=== PATIENT | male | born 1965 | race African-American/Black ===

== ENCOUNTER 2017-02-21 11:16 | Inpatient (IN) | payer OTHER ==
[2017-02-21 11:26] VITALS: BMI 47.0
--- NOTE | 2017-02-21 13:16 | HP ---
CIWA Score - CIWA Score Nausea/Vomitin-No Nausea/No Vomiting Muscle Tremors: 4-Moderate,w/Arms Extend Anxiety: 3 Agitation: 4-Moderately Restless Paroxysmal Sweats: 3 Orientation: 0-Oriented Tacttile Disturbances: 0-None Auditory Disturbances: 0-None Visual Disturbances: 0-None Headache: 0-None Present CIWA-Ar Total Score: 14 Admission ROS BHS - HPI Chief Complaint: I need to detox from alcohol and cocaine. Allergies/Adverse Reactions: Allergies Allergy/AdvReac Type Severity Reaction Status Date / Time No Known Allergies Allergy Verified 02/21/17 12:48 History of Present Illness: pt is a 51yr old male with a history of alcohol dependence seeking detox for treatment. Exam Limitations: Physical Impairment (d/t to leg pain pt uses cane and walker) - Ebola screening Have you traveled outside of the country in the last 21 days: No Have you had contact with anyone from an Ebola affected area: No Have you been sick,other than usual withdrawal symptoms: No Do you have a fever: No - Review of Systems Constitutional: No Symptoms Reported EENT: reports: No Symptoms Reported Respiratory: reports: No Symptoms reported Cardiac: reports: No Symptoms Reported GI: reports: Poor Fluid Intake : reports: No Symptoms Reported Musculoskeletal: reports: Joint Pain, Joint Stiffness Integumentary: reports: Flushing, Sweating Neuro: reports: Tingling, Tremors Endocrine: reports: Excessive Sweating, Flushing, Intolerance to Cold, Intolerance to Heat Hematology: reports: No Symptoms Reported Psychiatric: reports: Judgement Intact, Mood/Affect Appropiate, Orientated x3, Agitated, Anxious Other Systems: Reviewed and Negative Patient History - Patient Medical History Hx Anemia: No Hx Asthma: No Hx Chronic Obstructive Pulmonary Disease (COPD): No Hx Cancer: No Hx Cardiac Disorders: No Hx Congestive Heart Failure: No Hx Hypertension: Yes Hx Hypercholesterolemia: No Hx Pacemaker: No HX Cerebrovascular Accident: No Hx Seizures: No Hx Diabetes: No Hx Gastrointestinal Disorders: No Hx Liver Disease: No Hx Genitourinary Disorders: No Hx Sexually Transmitted Disorders: No Hx Renal Disease (ESRD): No Hx Thyroid Disease: No Hx Human Immunodeficiency Virus (HIV): No (negative) Hx Hepatitis C: No (negative) Hx Depression: Yes Hx Suicide Attempt: No (denies) Hx Bipolar Disorder: No Hx Schizophrenia: No - Patient Surgical History Past Surgical History: Yes Hx Neurologic Surgery: No Hx Cataract Extraction: No Hx Cardiac Surgery: No Hx Lung Surgery: No Hx Breast Surgery: No Hx Breast Biopsy: No Hx Abdominal Surgery: No Hx Appendectomy: No Hx Cholecystectomy: No Hx Genitourinary Surgery: No Hx Section: No Hx Orthopedic Surgery: Yes (left femur x3 (fall)) Anesthesia Reaction: No - PPD History Previous Implant?: Yes Documented Results: Negative w/o proof Implanted On Prior [facility] Admission?: No PPD to be Administered?: Yes - Reproductive History Patient is a Female of Child Bearing Age (11 -55 yrs old): No - Smoking Cessation Smoking history: Current every day smoker Have you smoked in the past 12 months: Yes Aproximately how many cigarettes per day: 8 Hx Chewing Tobacco Use: No Initiated information on smoking cessation: Yes 'Breaking Loose' booklet given: 02/21/17 - Substance & Tx. History Hx Alcohol Use: Yes Hx Substance Use: Yes Substance Use Type: Alcohol, Cocaine, Heroin Hx Substance Use Treatment: Yes (last detox 2 months ago [facility]) - Substances Abused Heroin Route: Inhalation Frequency: 1-2 times per week Amount used: 1-2 bags Age of first use: 39 Date of Last Use: 03/18/17 Crack Route: Smoking Frequency: 3-6 times per week Amount used: $60 Age of first use: 21 Date of Last Use: 03/19/17 Alcohol-vodka/beer Route: Oral Frequency: Daily Amount used: fifth/1-6 pk. Age of first use: 11 Date of Last Use: 02/21/17 Family Disease History - Family Disease History Family History: Denies Admission Physical Exam [facility] - Vital Signs Vital Signs: Vital Signs - 24 hr 02/21/17 11:23 Temperature 96.7 F L Pulse Rate 75 Respiratory 20 Rate Blood Pressure 136/86 - Physical General Appearance: Yes: Moderate Distress, Obese, Tremorous, Irritable, Sweating, Anxious HEENTM: Yes: Within Normal Limits Respiratory: Yes: Lungs Clear, Normal Breath Sounds, No Respiratory Distress Neck: Yes: No masses,lesions,Nodules Breast: Yes: Within Normal Limits Cardiology: Yes: Regular Rhythm, Regular Rate, S1, S2 Abdominal: Yes: Normal Bowel Sounds, Non Tender, Soft Genitourinary: Yes: Within Normal Limits Back: Yes: Normal Inspection Musculoskeletal: Yes: Joint Stiffness, Muscle Pain Extremities: Yes: Normal Capillary Refill, Normal Inspection, Non-Tender, Tremors Neurological: Yes: Fully Oriented, Alert, Normal Response Integumentary: Yes: Normal Color Lymphatic: Yes: Within Normal Limits - Diagnostic (1) Alcohol dependence with uncomplicated withdrawal Current Visit: Yes Status: Chronic (2) Hypertension Current Visit: Yes Status: Chronic Qualifiers: Hypertension type: essential hypertension Qualified Code(s): I10 - Essential (primary) hypertension; I10 - Essential (primary) hypertension; I10 - Essential (primary) hypertension (3) Cocaine dependence Current Visit: Yes Status: Chronic Qualifiers: Substance use status: uncomplicated Qualified Code(s): F14.20 - Cocaine dependence, uncomplicated; F14.20 - Cocaine dependence, uncomplicated; F14.20 - Cocaine dependence, uncomplicated (4) Nicotine dependence Current Visit: Yes Status: Chronic Qualifiers: Nicotine product type: cigarettes Substance use status: uncomplicated Qualified Code(s): F17.210 - Nicotine dependence, cigarettes, uncomplicated; F17.210 - Nicotine dependence, cigarettes, uncomplicated Cleared for Admission [facility] - Detox or Rehab [facility] Level of Care: Medically Managed Detox Regimen/Protocol: Librium [facility] Breath Alcohol Content Breath Alcohol Content: 0.077 Urine Drug Screen - Results Drug Screen Negative: No Urine Drug Screen Results: [facility]OUIS-Cocaine
[2017-02-21] MEDS ORDERED: guaiFENesin/D-METHORPHAN HB 10 ML UNIT-DOSE CUPS PO PRN (13:17)
[2017-02-21] MEDS ORDERED: LOPERAMIDE HCL 2 MG CAPSULE PO PRN (13:17)
[2017-02-21] MEDS ORDERED: MAGNESIUM CITRATE 300 ML BOTTLE PO PRN (13:17)
[2017-02-21] MEDS ORDERED: NICOTINE POLACRILEX 2 MG GUM BUC PRN (13:17)
[2017-02-21] MEDS ORDERED: IBUPROFEN 400 MG TABLET (FP) PO PRN (13:17)
[2017-02-21] MEDS ORDERED: hydrOXYzine PAMOATE 50 MG CAPSULE (FP) PO PRN (13:17)
[2017-02-21] MEDS ORDERED: MENTHOL/PHENOL 1 EACH UD MM PRN (13:17)
[2017-02-21] MEDS ORDERED: chlordiazePOXIDE HCL 25 MG CAPSULE PO PRN (13:17)
[2017-02-21] MEDS ORDERED: diphenhydrAMINE HCL 50 MG CAPSULE PO PRN (13:17)
[2017-02-21] MEDS ORDERED: MAG HYDROX/AL HYDROX/SIMETH 30 ML UNIT-DOSE CUP PO PRN (13:17)
[2017-02-21] MEDS ORDERED: MAGNESIUM HYDROX 2400MG/30ML ORAL SUSPENSION 30 ML CUP PO PRN (13:17)
[2017-02-21] MEDS ORDERED: ACETAMINOPHEN 325 MG TABLET (FP) PO PRN (13:17)
[2017-02-21] MEDS ORDERED: P-EPHED 60MG/TRIPROLIDI 2.5MG TABLET PO PRN (13:17)
[2017-02-21] MEDS ORDERED: chlordiazePOXIDE HCL 25 MG CAPSULE PO ONE (15:03)
[2017-02-21] MEDS: chlordiazePOXIDE HCL 25 MG CAPSULE PO SCH ×2 (16:52→22:32)
[2017-02-21 16:53] LABS: MCH 32.6 pg (25.7-33.7); MCHC 34.7 g/dl (32.0-35.9); MEAN CELL VOLUME 93.8 fl (80-96); MEAN PLT VOLUME 10.1 fl (7.5-11.1); PLATELET COUNT 211 K/MM3 (134-434); RDW 13.3 % (11.9-15.9)
[2017-02-21 17:14] LABS: ALBUMIN 3.8 g/dl (3.4-5.0); ALK PHOS 95 U/L (45-117); ANION GAP 6 (8-16); BILIRUBIN,TOTAL 0.7 mg/dL (0.2-1.0); CO2 25 mmol/L (21-32); CREATININE 1.1 mg/dL (0.7-1.3); GLUCOSE,RANDOM 74 mg/dL (74-106); SGOT/AST 30 U/L (15-37); SGPT/ALT 33 U/L (12-78)
[2017-02-21] MEDS: GABAPENTIN 300 MG CAPSULE (FP) PO SCH (22:14)
[2017-02-21] MEDS: THIAMINE HCL 100 MG TABLET (FP) PO SCH (22:14)
[2017-02-21 23:09] LABS: URINE APPEARANCE CLEAR; URINE BILIRUBIN NEGATIVE (NEGATIVE); URINE BLOOD NEGATIVE (NEGATIVE); URINE COLOR STRAW; URINE GLUCOSE (UA) NEGATIVE (NEGATIVE); URINE KETONE NEGATIVE (NEGATIVE); URINE LEUK ESTERASE NEGATIVE (NEGATIVE); URINE NITRITE NEGATIVE (NEGATIVE); URINE PROTEIN NEGATIVE (NEGATIVE); URINE UROBILINOGEN NEGATIVE mg/dL (0.2-1.0)
[2017-02-22 00:33] LABS: HIV 1 & 2 AB NEGATIVE; HIV 1 AGp24 NEGATIVE
[2017-02-22] MEDS: chlordiazePOXIDE HCL 25 MG CAPSULE PO SCH ×4 (05:55→22:15)
[2017-02-22] MEDS: GABAPENTIN 300 MG CAPSULE (FP) PO SCH ×3 (05:57→22:15)
[2017-02-22] MEDS: IBUPROFEN 400 MG TABLET (FP) PO PRN ×2 (08:49→17:20)
[2017-02-22] MEDS: PRENATAL VITAMINS W/ FOLIC ACID TABLET (FP) PO SCH (10:04)
[2017-02-22] MEDS: NICOTINE 14 MG/24 HOURS TOPICAL PATCH TD SCH (10:48)
--- NOTE | 2017-02-22 11:30 | CONSULT ---
[facility] Psychiatric Consult - Data Date of interview: 02/22/17 Admission source: Self-referred Identifying data: Mr vargas is a 51 years old single Black, father of a 32 years old daughter, unemployed on SSD, domiciled Substance Abuse History: Reports history of alcohol, heroin and cocaine use. He started drinking alcohol at age 11, smoking crack cocaine at age 21 and heroin at 39, consumes a fifth of vodka and a 6pk of beer daily, 1-2 bags of heroin 1- 2 times weekly and $60 worth of crack cocaine 3-6 times weekly Medical History: Significant for hypertension, arthritis right hip and history of orthosurgery for fracture left femur due to a fall. Smokes 8 cigarettes daily Psychiatric History: Denies history of previous psychiatric treatment Physical/Sexual Abuse/Trauma History: Denies history of verbal, physical or sexual abuse as well as DV relationship Additional Comment: Reports history of multiple previous midemeanor arrests. No probation currently Mental Status Exam - Mental Status Exam Alert and Oriented to: Time, Place, Person Cognitive Function: Fair Patient Appearance: Well Groomed Mood: Depressed Affect: Appropriate Patient Behavior: Cooperative Speech Pattern: Clear Voice Loudness: Normal Thought Process: Intact, Goal Oriented Hallucinations: Denies Suicidal Ideation: Denies Homicidal Ideation: Denies Insight/Judgement: Poor Sleep: Poorly Appetite: Good Muscle strength/Tone: Normal Gait/Station: Other (walks with a walker because of pain from arthitis and previous surgery) Psychiatric Findings - Problem List (Cornish 1, 2,3) (1) Substance induced mood disorder Current Visit: Yes Status: Acute (2) Substance-induced sleep disorder Current Visit: Yes Status: Acute (3) Opioid dependence with withdrawal Current Visit: Yes Status: Acute (4) Alcohol dependence with uncomplicated withdrawal Current Visit: Yes Status: Acute (5) Nicotine dependence Current Visit: Yes Status: Acute (6) Arthritis of right hip Current Visit: Yes Status: Acute - Initial Treatment Plan Initial Treatment Plan: 1) Start Ambien 10 mg po HS prn for insomnia. Benefits vs Risks of medication discussed with patient and he agreed to try it. 2) continue inpatient detoxification
--- NOTE | 2017-02-22 12:28 | PN ---
[facility] CIWA - CIWA Score Nausea/Vomitin-No Nausea/No Vomiting Muscle Tremors: 4-Moderate,w/Arms Extend Anxiety: 4-Mod. Anxious/Guarded Agitation: 4-Moderately Restless Paroxysmal Sweats: 1-Minimal Palms Moist Orientation: 0-Oriented Tacttile Disturbances: 3-Moderate Itch/Numb/Burn Auditory Disturbances: 0-None Visual Disturbances: 0-None Headache: 0-None Present CIWA-Ar Total Score: 16 S Progress Note (SOAP) Subjective: ANXIETY,SWEATS,TREMORS,HIP AND LEG PAIN DUE TO CHRONIC ARTHRITIS.. USES WALKER FOR AMBULATION. URINE TOX WAS NEGATIVE FOR OPIATES ON ADMISSION. Objective: 02/22/17 12:26 Vital Signs Temperature 97.0 F L 02/22/17 09:23 Pulse Rate 81 02/22/17 09:23 Respiratory Rate 18 02/22/17 09:23 Blood Pressure 117/76 02/22/17 09:23 O2 Sat by Pulse Oximetry (%) Laboratory Last Values WBC 7.0 K/mm3 (4.0-10.0) 02/21/17 14:00 RBC 4.60 M/mm3 (4.00-5.60) 02/21/17 14:00 Hgb 15.0 GM/dL (11.7-16.9) 02/21/17 14:00 Hct 43.1 % (35.4-49) 02/21/17 14:00 MCV 93.8 fl (80-96) 02/21/17 14:00 MCH 32.6 pg (25.7-33.7) 02/21/17 14:00 MCHC 34.7 g/dl (32.0-35.9) 02/21/17 14:00 RDW 13.3 % (11.9-15.9) 02/21/17 14:00 Plt Count 211 K/MM3 (134-434) 02/21/17 14:00 MPV 10.1 fl (7.5-11.1) 02/21/17 14:00 Sodium 136 mmol/L (136-145) 02/21/17 14:00 Potassium 4.2 mmol/L (3.5-5.1) 02/21/17 14:00 Chloride 105 mmol/L (98-107) 02/21/17 14:00 Carbon Dioxide 25 mmol/L (21-32) 02/21/17 14:00 Anion Gap 6 (8-16) L 02/21/17 14:00 BUN 12 mg/dL (7-18) 02/21/17 14:00 Creatinine 1.1 mg/dL (0.7-1.3) 02/21/17 14:00 Creat Clearance w eGFR > 60 (>60) 02/21/17 14:00 Random Glucose 74 mg/dL (74-106) 02/21/17 14:00 Calcium 9.0 mg/dL (8.5-10.1) 02/21/17 14:00 Total Bilirubin 0.7 mg/dL (0.2-1.0) 02/21/17 14:00 AST 30 U/L (15-37) 02/21/17 14:00 ALT 33 U/L (12-78) 02/21/17 14:00 Alkaline Phosphatase 95 U/L (45-117) 02/21/17 14:00 Total Protein 8.0 g/dl (6.4-8.2) 02/21/17 14:00 Albumin 3.8 g/dl (3.4-5.0) 02/21/17 14:00 Urine Color Straw 02/21/17 21:34 Urine Appearance Clear 02/21/17 21:34 Urine pH 5.0 (5.0-8.0) 02/21/17 21:34 Ur Specific Bruce <= 1.005 (1.005-1.025) 02/21/17 21:34 Urine Protein Negative (NEGATIVE) 02/21/17 21:34 Urine Glucose (UA) Negative (NEGATIVE) 02/21/17 21:34 Urine Ketones Negative (NEGATIVE) 02/21/17 21:34 Urine Blood Negative (NEGATIVE) 02/21/17 21:34 Urine Nitrite Negative (NEGATIVE) 02/21/17 21:34 Urine Bilirubin Negative (NEGATIVE) 02/21/17 21:34 Urine Urobilinogen Negative mg/dL (0.2-1.0) 02/21/17 21:34 RPR Titer Nonreactive (NONREACTIVE) 02/21/17 14:00 HIV 1&2 Antibody Screen Negative 02/21/17 13:00 HIV P24 Antigen Negative 02/21/17 13:00 Assessment: 02/22/17 12:26 WITHDRAWAL SX Plan: CONTINUE DETOX
[2017-02-22] MEDS: THIAMINE HCL 100 MG TABLET (FP) PO SCH (22:15)
[2017-02-22] MEDS: ZOLPIDEM TARTRATE 10 MG TABLET (PARK CARE ONLY) PO PRN (22:15)
[2017-02-23] MEDS: chlordiazePOXIDE HCL 25 MG CAPSULE PO SCH (05:24)
[2017-02-23] MEDS: GABAPENTIN 300 MG CAPSULE (FP) PO SCH ×3 (05:24→22:45)
[2017-02-23] MEDS: NICOTINE 14 MG/24 HOURS TOPICAL PATCH TD SCH (10:09)
[2017-02-23] MEDS: chlordiazePOXIDE 5 MG CAPSULE PO SCH ×2 (10:09→17:17)
[2017-02-23] MEDS: PRENATAL VITAMINS W/ FOLIC ACID TABLET (FP) PO SCH (10:09)
[2017-02-23] MEDS: IBUPROFEN 400 MG TABLET (FP) PO PRN ×2 (10:11→19:09)
--- NOTE | 2017-02-23 11:37 | PN ---
[facility] CIWA - CIWA Score Nausea/Vomitin-No Nausea/No Vomiting Muscle Tremors: 4-Moderate,w/Arms Extend Anxiety: 4-Mod. Anxious/Guarded Agitation: 4-Moderately Restless Paroxysmal Sweats: 1-Minimal Palms Moist Orientation: 0-Oriented Tacttile Disturbances: 3-Moderate Itch/Numb/Burn Auditory Disturbances: 0-None Visual Disturbances: 0-None Headache: 0-None Present CIWA-Ar Total Score: 16 BHS Progress Note (SOAP) Subjective: SLIGHT ANXIETY, SWEATS. Objective: 02/23/17 11:36 Vital Signs Temperature 98.0 F 02/23/17 09:03 Pulse Rate 87 02/23/17 09:03 Respiratory Rate 18 02/23/17 09:03 Blood Pressure 135/93 02/23/17 09:03 O2 Sat by Pulse Oximetry (%) Laboratory Last Values WBC 7.0 K/mm3 (4.0-10.0) 02/21/17 14:00 RBC 4.60 M/mm3 (4.00-5.60) 02/21/17 14:00 Hgb 15.0 GM/dL (11.7-16.9) 02/21/17 14:00 Hct 43.1 % (35.4-49) 02/21/17 14:00 MCV 93.8 fl (80-96) 02/21/17 14:00 MCH 32.6 pg (25.7-33.7) 02/21/17 14:00 MCHC 34.7 g/dl (32.0-35.9) 02/21/17 14:00 RDW 13.3 % (11.9-15.9) 02/21/17 14:00 Plt Count 211 K/MM3 (134-434) 02/21/17 14:00 MPV 10.1 fl (7.5-11.1) 02/21/17 14:00 Sodium 136 mmol/L (136-145) 02/21/17 14:00 Potassium 4.2 mmol/L (3.5-5.1) 02/21/17 14:00 Chloride 105 mmol/L (98-107) 02/21/17 14:00 Carbon Dioxide 25 mmol/L (21-32) 02/21/17 14:00 Anion Gap 6 (8-16) L 02/21/17 14:00 BUN 12 mg/dL (7-18) 02/21/17 14:00 Creatinine 1.1 mg/dL (0.7-1.3) 02/21/17 14:00 Creat Clearance w eGFR > 60 (>60) 02/21/17 14:00 Random Glucose 74 mg/dL (74-106) 02/21/17 14:00 Calcium 9.0 mg/dL (8.5-10.1) 02/21/17 14:00 Total Bilirubin 0.7 mg/dL (0.2-1.0) 02/21/17 14:00 AST 30 U/L (15-37) 02/21/17 14:00 ALT 33 U/L (12-78) 02/21/17 14:00 Alkaline Phosphatase 95 U/L (45-117) 02/21/17 14:00 Total Protein 8.0 g/dl (6.4-8.2) 02/21/17 14:00 Albumin 3.8 g/dl (3.4-5.0) 02/21/17 14:00 Urine Color Straw 02/21/17 21:34 Urine Appearance Clear 02/21/17 21:34 Urine pH 5.0 (5.0-8.0) 02/21/17 21:34 Ur Specific Griffin <= 1.005 (1.005-1.025) 02/21/17 21:34 Urine Protein Negative (NEGATIVE) 02/21/17 21:34 Urine Glucose (UA) Negative (NEGATIVE) 02/21/17 21:34 Urine Ketones Negative (NEGATIVE) 02/21/17 21:34 Urine Blood Negative (NEGATIVE) 02/21/17 21:34 Urine Nitrite Negative (NEGATIVE) 02/21/17 21:34 Urine Bilirubin Negative (NEGATIVE) 02/21/17 21:34 Urine Urobilinogen Negative mg/dL (0.2-1.0) 02/21/17 21:34 RPR Titer Nonreactive (NONREACTIVE) 02/21/17 14:00 HIV 1&2 Antibody Screen Negative 02/21/17 13:00 HIV P24 Antigen Negative 02/21/17 13:00 Assessment: 02/23/17 11:37 WITHDRAWAL SX Plan: CONTINUE DETOX
--- NOTE | 2017-02-23 14:25 | EKG ---
Test Reason : Blood Pressure : / mmHG Vent. Rate : 079 BPM Atrial Rate : 079 BPM P-R Int : 164 ms QRS Dur : 090 ms QT Int : 368 ms P-R-T Axes : 052 033 042 degrees QTc Int : 421 ms NORMAL SINUS RHYTHM MODERATE VOLTAGE CRITERIA FOR LVH, MAY BE NORMAL VARIANT CANNOT RULE OUT SEPTAL INFARCT , AGE UNDETERMINED ABNORMAL ECG NO PREVIOUS ECGS AVAILABLE Confirmed by APARNA TOSCANO, MACKENZIE ([id number]) on 02/23/2017 2:24:57 PM Referred By: Van Deng Confirmed By:MACKENZIE BRAUN MD
[2017-02-23] MEDS ORDERED: chlordiazePOXIDE 5 MG CAPSULE PO SCH (17:00)
[2017-02-23 22:12] VITALS: BP 114/74; PULSE 93; TEMP 96.4
[2017-02-23] MEDS: THIAMINE HCL 100 MG TABLET (FP) PO SCH (22:45)
[2017-02-23] MEDS: chlordiazePOXIDE HCL 10 MG CAPSULE PO SCH (22:45)
[2017-02-23] MEDS: ZOLPIDEM TARTRATE 10 MG TABLET (PARK CARE ONLY) PO PRN (22:45)
[2017-02-24] MEDS: IBUPROFEN 400 MG TABLET (FP) PO PRN (03:21)
[2017-02-24] MEDS: GABAPENTIN 300 MG CAPSULE (FP) PO SCH (05:23)
[2017-02-24] MEDS: chlordiazePOXIDE HCL 10 MG CAPSULE PO SCH (05:23)
--- NOTE | 2017-02-24 09:20 | DS ---
[facility] Detox Discharge Summary Admission Date: 02/21/17 Discharge Date: 02/24/17 - History Present History: Alcohol Dependence, Cocaine Dependence Additional Comments: DETOX COMPLETED. D/C'D EARLY TODAY. PT REMINDED TO FOLLOW UP WITH HIS MEDICAL MANAGEMENT AT [facility] NEEDED. Pertinent Past History: HTN ARTHRITIS RIGHT HIP WALKER AMBULATORY AID. - Physical Exam Results Vital Signs: Vital Signs Temperature 96.4 F L 02/23/17 22:11 Pulse Rate 93 H 02/23/17 22:11 Respiratory Rate 18 02/24/17 03:38 Blood Pressure 114/74 02/23/17 22:11 O2 Sat by Pulse Oximetry (%) Pertinent Admission Physical Exam Findings: WITHDRAWAL SX - Treatment Hospital Course: Detox Protocol Followed, Detoxed Safely, Responded well, Discharged Condition Good - Medication Discharge Medications: Ambulatory Orders Gabapentin [Neurontin -] 300 mg PO Q8H 02/21/17 Ibuprofen 800 mg PO TID 02/21/17 Valsartan [Diovan] 80 mg PO DAILY 02/21/17 - Diagnosis (1) Alcohol dependence with uncomplicated withdrawal Status: Acute (2) Arthritis of right hip Status: Chronic (3) HTN (hypertension) Status: Chronic Qualifiers: Hypertension type: essential hypertension Qualified Code(s): I10 - Essential (primary) hypertension; I10 - Essential (primary) hypertension; I10 - Essential (primary) hypertension (4) Nicotine dependence Status: Acute Qualifiers: Nicotine product type: cigarettes Substance use status: in withdrawal Qualified Code(s): F17.213 - Nicotine dependence, cigarettes, with withdrawal; F17.213 - Nicotine dependence, cigarettes, with withdrawal (5) Walker as ambulation aid Status: Chronic (6) Cocaine dependence Status: Acute Qualifiers: Substance use status: uncomplicated Qualified Code(s): F14.20 - Cocaine dependence, uncomplicated; F14.20 - Cocaine dependence, uncomplicated; F14.20 - Cocaine dependence, uncomplicated - AMA Did Patient Leave Against Medical Advice: No
[2017-02-24] MEDS ORDERED: chlordiazePOXIDE HCL 10 MG CAPSULE PO SCH (17:00)
== END 2017-02-24 05:25 | disposition home or self-care (01) | DRG 774 ==
LOC: YASAS 11:16 → Y3N 14:58
PROVIDERS: ADMIT Internal Medicine; ATTEND Internal Medicine
PROC: HZ2ZZZZ Detoxification Services for Substance Abuse Treatment (ICD-10-PCS; principal; 2017-02-21)
DX: F10.230 Alcohol dependence with withdrawal, uncomplicated (principal); F14.20 Cocaine dependence, uncomplicated; F19.24 Other psychoactive substance dependence with psychoactive substance-induced mood disorder; F19.282 Other psychoactive substance dependence with psychoactive substance-induced sleep disorder; I10 Essential (primary) hypertension; M13.851 Other specified arthritis, right hip; E66.9 Obesity, unspecified; Z68.42 Body mass index [BMI] 45.0-49.9, adult; R26.2 Difficulty in walking, not elsewhere classified; Z99.89 Dependence on other enabling machines and devices
CPT/HCPCS: 36415; 80053; 81003; 85027; 86593; 87389; 93005; 93010

== ENCOUNTER 2017-05-07 08:40 | Inpatient (IN) | payer OTHER ==
[2017-05-07 10:51] VITALS: BMI 47.1
--- NOTE | 2017-05-07 12:02 | HP ---
CIWA Score - CIWA Score Nausea/Vomitin Muscle Tremors: 3 Anxiety: 3 Agitation: 3 Paroxysmal Sweats: 2 Orientation: 0-Oriented Tacttile Disturbances: 2-Mild Itch/Numbness/Burn Auditory Disturbances: 2-Mild Harshness/Frighten Visual Disturbances: 2-Mild Sensitivity Headache: 2-Mild CIWA-Ar Total Score: 22 Admission ROS BHS - HPI Chief Complaint: I NEED HELP TO STOP DRINKING ALCOHOL AND COCAINE,TAKING OXYCODONE Allergies/Adverse Reactions: Allergies Allergy/AdvReac Type Severity Reaction Status Date / Time No Known Allergies Allergy Verified 05/07/17 11:22 History of Present Illness: THIS 52 YEARS OLD MALE WITH ALCOHOL AND COCAINE DEPENDENCE,SEEKING DETOX,LAST DETOX [facility] LAST DETOX [facility] 02/21/17 TO 10/25/16 MULTIPLE ADMISSIONS IN DETOX MULTIPLE SURGERY LEFT HIP POST FALL AND RIGHT HIP REPLACEMENT AMBULATE WITH WALKER DEPRESSION LONGEST PERIOD OF SOBRIETY 3 YEARS Exam Limitations: No Limitations - Ebola screening Have you traveled outside of the country in the last 21 days: No Have you had contact with anyone from an Ebola affected area: No Have you been sick,other than usual withdrawal symptoms: No Do you have a fever: No - Review of Systems Constitutional: Loss of Appetite, Night Sweats EENT: reports: Nose Congestion Respiratory: reports: No Symptoms reported Cardiac: reports: No Symptoms Reported GI: reports: Nausea, Vomiting, Abdominal cramping : reports: No Symptoms Reported Musculoskeletal: reports: Back Pain, Joint Pain, Muscle Pain Integumentary: reports: Dryness Neuro: reports: Headache, Tremors Endocrine: reports: No Symptoms Reported Hematology: reports: No Symptoms Reported Psychiatric: reports: Depressed Patient History - Patient Medical History Hx Anemia: No Hx Asthma: No Hx Chronic Obstructive Pulmonary Disease (COPD): No Hx Cancer: No Hx Cardiac Disorders: No Hx Congestive Heart Failure: No Hx Hypertension: Yes (on meds.) Hx Hypercholesterolemia: No Hx Pacemaker: No HX Cerebrovascular Accident: No Hx Seizures: No Hx Diabetes: No Hx Gastrointestinal Disorders: No Hx Liver Disease: No Hx Genitourinary Disorders: No Hx Sexually Transmitted Disorders: No Hx Renal Disease (ESRD): No Hx Thyroid Disease: No Hx Human Immunodeficiency Virus (HIV): No (negative LAST 09/05) Hx Hepatitis C: No (negative) Hx Depression: Yes (NO MED) Hx Suicide Attempt: No Hx Bipolar Disorder: No Hx Schizophrenia: No Other Medical History: NO SUICIDAL,NO HOMICIDAL,S/P RIGHT HIP REPLACEMANT, AMBULATE WITH WALKER, - Patient Surgical History Past Surgical History: Yes Hx Neurologic Surgery: No Hx Cataract Extraction: No Hx Cardiac Surgery: No Hx Lung Surgery: No Hx Breast Surgery: No Hx Breast Biopsy: No Hx Abdominal Surgery: No Hx Appendectomy: No Hx Cholecystectomy: No Hx Genitourinary Surgery: No Hx Section: No Hx Orthopedic Surgery: Yes (left femur x3 (fall) in 2014) Other Surgical History: Total R hip replacement [address] [facility] Anesthesia Reaction: No - PPD History Previous Implant?: Yes Documented Results: Negative w/proof Implanted On Prior [facility] Admission?: Yes Date: 02/23/17 Results: 0 mm PPD to be Administered?: No - Smoking Cessation Smoking history: Current every day smoker Have you smoked in the past 12 months: Yes Aproximately how many cigarettes per day: 5 Hx Chewing Tobacco Use: No Initiated information on smoking cessation: Yes 'Breaking Loose' booklet given: 05/07/17 - Substance & Tx. History Hx Alcohol Use: Yes Hx Substance Use: Yes Substance Use Type: Alcohol, Cocaine Hx Substance Use Treatment: Yes ([facility] 02/21/17 TO 02/24/17) - Substances Abused Alcohol Route: Oral Frequency: Daily Amount used: 2 6pks beer Age of first use: 13 Date of Last Use: 05/06/17 Crack Route: Smoking Frequency: Daily Amount used: $30 Age of first use: 21 Date of Last Use: 05/05/17 oxycodone Route: Oral Frequency: 1-2 times per week Amount used: 30mg Age of first use: 50 Date of Last Use: 05/05/17 Family Disease History - Family Disease History Family History: Denies Admission Physical Exam S - Vital Signs Vital Signs: Vital Signs - 24 hr 05/07/17 10:43 Temperature 97.9 F Pulse Rate 81 Respiratory 20 Rate Blood Pressure 133/87 - Physical General Appearance: Yes: Moderate Distress, Tremorous, Irritable, Sweating, Anxious HEENTM: Yes: Normal ENT Inspection, SIMA, Pharynx Normal Respiratory: Yes: Lungs Clear, Normal Breath Sounds, No Respiratory Distress Neck: Yes: Within Normal Limits, Supple, Trachea in good position Breast: Yes: Breast Exam Deferred Cardiology: Yes: Within Normal Limits, Regular Rhythm, Regular Rate, S1, S2 Abdominal: Yes: Within Normal Limits, Normal Bowel Sounds, Non Tender, Soft Genitourinary: Yes: Within Normal Limits Back: Yes: Muscle Spasm Musculoskeletal: Yes: Back pain, Joint Stiffness (S/P RIGHT HIP REPLACEMENT MULTIPLE SURGERY OF LEFT FEMUR), Muscle Pain Extremities: Yes: Tremors Neurological: Yes: website designer II-XII NML intact, Fully Oriented, Alert, Motor Strength 5/5 Integumentary: Yes: Dry Lymphatic: Yes: Within Normal Limits - Diagnostic (1) Alcohol dependence with uncomplicated withdrawal Current Visit: No Status: Acute (2) Cocaine dependence Current Visit: No Status: Acute Qualifiers: Substance use status: uncomplicated Qualified Code(s): F14.20 - Cocaine dependence, uncomplicated (3) Nicotine dependence Current Visit: No Status: Acute Qualifiers: Nicotine product type: cigarettes Substance use status: in withdrawal Qualified Code(s): F17.213 - Nicotine dependence, cigarettes, with withdrawal (4) Arthritis of right hip Current Visit: No Status: Chronic (5) HTN (hypertension) Current Visit: No Status: Chronic Qualifiers: Hypertension type: essential hypertension Qualified Code(s): I10 - Essential (primary) hypertension (6) Walker as ambulation aid Current Visit: No Status: Chronic (7) History of right hip replacement Current Visit: Yes Status: Acute (8) Depression Current Visit: Yes Status: Acute (9) Essential (primary) hypertension Current Visit: Yes Status: Acute Cleared for Admission S - Detox or Rehab [facility] Level of Care: Medically Managed Detox Regimen/Protocol: Librium S Breath Alcohol Content Breath Alcohol Content: 0 Urine Drug Screen - Results Drug Screen Negative: No Urine Drug Screen Results: [facility]-Cocaine
[2017-05-07] MEDS ORDERED: P-EPHED 60MG/TRIPROLIDI 2.5MG TABLET PO PRN (12:17)
[2017-05-07] MEDS ORDERED: guaiFENesin/D-METHORPHAN HB 10 ML UNIT-DOSE CUPS PO PRN (12:17)
[2017-05-07] MEDS ORDERED: chlordiazePOXIDE HCL 25 MG CAPSULE PO ONE (12:17)
[2017-05-07] MEDS ORDERED: LOPERAMIDE HCL 2 MG CAPSULE PO PRN (12:17)
[2017-05-07] MEDS ORDERED: chlordiazePOXIDE HCL 25 MG CAPSULE PO PRN (12:17)
[2017-05-07] MEDS ORDERED: MAGNESIUM CITRATE 300 ML BOTTLE PO PRN (12:17)
[2017-05-07] MEDS ORDERED: MAGNESIUM HYDROX 2400MG/30ML ORAL SUSPENSION 30 ML CUP PO PRN (12:17)
[2017-05-07] MEDS ORDERED: MAG HYDROX/AL HYDROX/SIMETH 30 ML UNIT-DOSE CUP PO PRN (12:17)
[2017-05-07] MEDS ORDERED: MENTHOL/PHENOL 1 EACH UD MM PRN (12:17)
[2017-05-07] MEDS ORDERED: ACETAMINOPHEN 325 MG TABLET (FP) PO PRN (12:17)
[2017-05-07] MEDS: NICOTINE 21 MG/24 HOURS TOPICAL PATCH TD SCH (13:59)
[2017-05-07] MEDS: GABAPENTIN 300 MG CAPSULE (FP) PO SCH ×2 (14:00→22:20)
[2017-05-07] MEDS ORDERED: PATIENT'S OWN MEDICATION (NON-FORMULARY) (Ibuprofen [Ibuprofen] 800 MG) PO SCH (14:00)
[2017-05-07 16:06] LABS: URINE APPEARANCE CLEAR; URINE BILIRUBIN NEGATIVE (NEGATIVE); URINE BLOOD NEGATIVE (NEGATIVE); URINE COLOR YELLOW; URINE GLUCOSE (UA) NEGATIVE (NEGATIVE); URINE KETONE NEGATIVE (NEGATIVE); URINE LEUK ESTERASE NEGATIVE (NEGATIVE); URINE NITRITE NEGATIVE (NEGATIVE); URINE UROBILINOGEN NEGATIVE mg/dL (0.2-1.0)
[2017-05-07 16:07] LABS: URINE PROTEIN 1+ (NEGATIVE)
[2017-05-07 16:10] LABS: URINE BACTERIA RARE /hpf (NONE SEEN); URINE MUCUS RARE; URINE RBC <1 /hpf (0-3); URINE WBC <1 /hpf (3-5)
[2017-05-07] MEDS: chlordiazePOXIDE HCL 25 MG CAPSULE PO SCH ×2 (17:45→22:20)
[2017-05-07 20:15] LABS: URINE LEUK ESTERASE Negative (NEGATIVE)
[2017-05-07] MEDS: IBUPROFEN 400 MG TABLET (FP) PO PRN (20:38)
[2017-05-07] MEDS: THIAMINE HCL 100 MG TABLET (FP) PO SCH (22:20)
[2017-05-07] MEDS: hydrOXYzine PAMOATE 50 MG CAPSULE (FP) PO PRN (23:27)
[2017-05-08] MEDS: chlordiazePOXIDE HCL 25 MG CAPSULE PO SCH ×4 (05:40→22:22)
[2017-05-08] MEDS: GABAPENTIN 300 MG CAPSULE (FP) PO SCH ×3 (05:40→22:22)
[2017-05-08 09:57] LABS: MCH 30.8 pg (25.7-33.7); MCHC 32.7 g/dl (32.0-35.9); MEAN PLT VOLUME 9.8 fl (7.5-11.1); PLATELET COUNT 162 K/MM3 (134-434); RDW 14.3 % (11.9-15.9); WHITE BLOOD COUNT 4.7 K/mm3 (4.0-10.0)
[2017-05-08] MEDS ORDERED: ASPIRIN 325 MG TABLET PO SCH (10:00)
[2017-05-08 10:18] LABS: ALBUMIN 3.5 g/dl (3.4-5.0); ALK PHOS 103 U/L (45-117); ANION GAP 6 (8-16); BILIRUBIN,TOTAL 0.4 mg/dL (0.2-1.0); CALCIUM 8.8 mg/dL (8.5-10.1); CO2 27 mmol/L (21-32); CREATININE 1.4 mg/dL (0.7-1.3); GLUCOSE,RANDOM 93 mg/dL (74-106); SGOT/AST 27 U/L (15-37); SGPT/ALT 27 U/L (12-78); TOT PROT 7.5 g/dl (6.4-8.2)
[2017-05-08] MEDS: PRENATAL VITAMINS W/ FOLIC ACID TABLET (FP) PO SCH (10:18)
[2017-05-08] MEDS: VALSARTAN 80 MG TABLET (UD) PO SCH (10:19)
[2017-05-08] MEDS: NICOTINE 21 MG/24 HOURS TOPICAL PATCH TD SCH (10:19)
--- NOTE | 2017-05-08 11:49 | PN ---
[facility] CIWA - CIWA Score Nausea/Vomitin-No Nausea/No Vomiting Muscle Tremors: 4-Moderate,w/Arms Extend Anxiety: 4-Mod. Anxious/Guarded Agitation: 3 Paroxysmal Sweats: 1-Minimal Palms Moist Orientation: 0-Oriented Tacttile Disturbances: 3-Moderate Itch/Numb/Burn Auditory Disturbances: 0-None Visual Disturbances: 0-None Headache: 0-None Present CIWA-Ar Total Score: 15 S Progress Note (SOAP) Subjective: ANXIETY, SWEATS, TREMORS,CHRONIC PAIN-HX OF HIP REPLACEMENT. PT STATES HE HAS APPOINTMENT FOR GASTRIC SLEEVE ON 05/10/17 AND WOULD LIKE TO BE DISCHARGED TOMORROW. THIS PLAN APPEARS NOT TO BE CONFIRMED. Objective: 05/08/17 11:48 Vital Signs Temperature 96.2 F L 05/08/17 09:17 Pulse Rate 86 05/08/17 09:17 Respiratory Rate 18 05/08/17 09:17 Blood Pressure 142/90 05/08/17 09:17 O2 Sat by Pulse Oximetry (%) Laboratory Last Values WBC 4.7 K/mm3 (4.0-10.0) D 05/08/17 07:00 RBC 4.36 M/mm3 (4.00-5.60) 05/08/17 07:00 Hgb 13.4 GM/dL (11.7-16.9) D 05/08/17 07:00 Hct 41.0 % (35.4-49) 05/08/17 07:00 MCV 94.0 fl (80-96) 05/08/17 07:00 MCH 30.8 pg (25.7-33.7) 05/08/17 07:00 MCHC 32.7 g/dl (32.0-35.9) 05/08/17 07:00 RDW 14.3 % (11.9-15.9) 05/08/17 07:00 Plt Count 162 K/MM3 (134-434) D 05/08/17 07:00 MPV 9.8 fl (7.5-11.1) 05/08/17 07:00 Sodium 141 mmol/L (136-145) 05/08/17 07:00 Potassium 4.7 mmol/L (3.5-5.1) 05/08/17 07:00 Chloride 108 mmol/L (98-107) H 12/18/17 07:00 Carbon Dioxide 27 mmol/L (21-32) 05/08/17 07:00 Anion Gap 6 (8-16) L 05/08/17 07:00 BUN 20 mg/dL (7-18) H D 05/08/17 07:00 Creatinine 1.4 mg/dL (0.7-1.3) H D 05/08/17 07:00 Creat Clearance w eGFR 53.01 (>60) 05/08/17 07:00 Random Glucose 93 mg/dL (74-106) D 05/08/17 07:00 Calcium 8.8 mg/dL (8.5-10.1) 05/08/17 07:00 Total Bilirubin 0.4 mg/dL (0.2-1.0) D 05/08/17 07:00 AST 27 U/L (15-37) 05/08/17 07:00 ALT 27 U/L (12-78) 05/08/17 07:00 Alkaline Phosphatase 103 U/L (45-117) 05/08/17 07:00 Total Protein 7.5 g/dl (6.4-8.2) 05/08/17 07:00 Albumin 3.5 g/dl (3.4-5.0) 05/08/17 07:00 Urine Color Yellow 05/07/17 13:42 Urine Appearance Clear 05/07/17 13:42 Urine pH 5.0 (5.0-8.0) 05/07/17 13:42 Ur Specific [place] 1.024 (1.001-1.035) 05/07/17 13:42 Urine Protein 1+ (NEGATIVE) H 05/07/17 13:42 Urine Glucose (UA) Negative (NEGATIVE) 05/07/17 13:42 Urine Ketones Negative (NEGATIVE) 05/07/17 13:42 Urine Blood Negative (NEGATIVE) 05/07/17 13:42 Urine Nitrite Negative (NEGATIVE) 05/07/17 13:42 Urine Bilirubin Negative (NEGATIVE) 05/07/17 13:42 Urine Urobilinogen Negative mg/dL (0.2-1.0) 05/07/17 13:42 Ur Leukocyte Esterase Negative (NEGATIVE) 05/07/17 13:42 Urine WBC (Auto) <1 /hpf (3-5) 05/07/17 13:42 Urine RBC (Auto) <1 /hpf (0-3) 05/07/17 13:42 Urine Bacteria Rare /hpf (NONE SEEN) 05/07/17 13:42 Urine Mucus Rare 05/07/17 13:42 RPR Titer Nonreactive (NONREACTIVE) 05/08/17 07:00 Assessment: 05/08/17 11:48 WITHDRAWAL SX Plan: CONTINUE DETOX. ASPIRIN WILL BE DISCONTINUED AND LIBRIUM ADJUSTED.
--- NOTE | 2017-05-08 11:57 | CONSULT ---
[facility] Psychiatric Consult - Data Date of interview: 05/08/17 Admission source: [facility] Identifying data: Readmission to [facility] for this 52 y/o AA male,self- referred for detox treatment for cocaine,opiate and alcohol dependence.Patient is single without chidren,domiciled,disabled and supported on [facility] benefits. Substance Abuse History: Discussed with patient in this interview.See current [facility] report for details : Smoking history: Current every day smoker. Have you smoked in the past 12 months: Yes. Aproximately how many cigarettes per day: 5. Hx Chewing Tobacco Use: No. Initiated information on smoking cessation: Yes. 'Breaking Loose' booklet given: 05/07/17. - Substance & Tx. History. Hx Alcohol Use: Yes. Hx Substance Use: Yes. Substance Use Type: Alcohol, Cocaine. Hx Substance Use Treatment: Yes ([facility] 02/21/17 TO 02/24/17). - Substances Abused. Alcohol. Route: Oral. Frequency: Daily. Amount used: 2 6pks beer. Age of first use: 13. Date of Last Use: 05/06/17. Crack. Route: Smoking. Frequency: Daily. Amount used: $30. Age of first use: 21. Date of Last Use: 05/05/17. oxycodone. Route: Oral. Frequency: 1-2 times per week. Amount used: 30mg. Age of first use: 50. Date of Last Use: 05/05/17 Medical History: Obesity,recent history of right hip replacement and orthosurgery (four consecutive interventions) for fracture of left femur sustained in a fall (2014).Patient ambulates with a walker. Psychiatric History: No reported history of psychiatric hospitalizations.No prior contact with mental healthcare providers.Mr Baker denies past history of suicide attempts. Physical/Sexual Abuse/Trauma History: No reported history of abuse.Current stressor : of mother (last week). Additional Comment: Urine Drug Screen Results: LOUIS-Cocaine.Noted. Mental Status Exam - Mental Status Exam Alert and Oriented to: Time, Place Cognitive Function: Good Patient Appearance: Well Groomed (obese) Mood: Sad, Nervous, Withdrawn Affect: Mood Congruent, Constricted Patient Behavior: Fatigued, Appropriate (well-mannered), Cooperative Speech Pattern: Clear, Appropriate Voice Loudness: Normal Thought Process: Intact, Goal Oriented Thought Disorder: Not Present Hallucinations: Denies Suicidal Ideation: Denies Homicidal Ideation: Denies Insight/Judgement: Poor Sleep: Poorly, Difficulty falling asleep Appetite: Good Muscle strength/Tone: Normal (no complaint of weakness or rigidity) Gait/Station: Other (patient moves around with a walker) Psychiatric Findings - Problem List ([place] 1, 2,3) (1) Bereavement Current Visit: Yes Status: Acute (2) Alcohol dependence with uncomplicated withdrawal Current Visit: Yes Status: Acute (3) Opioid dependence with withdrawal Current Visit: Yes Status: Acute (4) Cocaine dependence Current Visit: Yes Status: Acute Qualifiers: Substance use status: uncomplicated Qualified Code(s): F14.20 - Cocaine dependence, uncomplicated (5) Nicotine dependence Current Visit: Yes Status: Acute Qualifiers: Nicotine product type: cigarettes Substance use status: in withdrawal Qualified Code(s): F17.213 - Nicotine dependence, cigarettes, with withdrawal (6) Substance induced mood disorder Current Visit: Yes Status: Chronic (7) Insomnia Current Visit: Yes Status: Acute - Initial Treatment Plan Initial Treatment Plan: Support and empathy are extended to the patient.Psychoeducation.Detoxification in effect.Sleep hygiene principles are explained to patient.Ambien 10 mg po hs prn.Mr Baker is made aware of the risk of parasomnias.He expressed his agreement with this careplan.Observation.
[2017-05-08] MEDS: IBUPROFEN 400 MG TABLET (FP) PO PRN ×2 (14:59→22:22)
[2017-05-08] MEDS: THIAMINE HCL 100 MG TABLET (FP) PO SCH (22:22)
[2017-05-08] MEDS: hydrOXYzine PAMOATE 50 MG CAPSULE (FP) PO PRN (22:28)
--- NOTE | 2017-05-09 01:56 | EKG ---
Test Reason : Blood Pressure : / mmHG Vent. Rate : 079 BPM Atrial Rate : 079 BPM P-R Int : 160 ms QRS Dur : 098 ms QT Int : 384 ms P-R-T Axes : 066 037 042 degrees QTc Int : 440 ms NORMAL SINUS RHYTHM NORMAL ECG WHEN COMPARED WITH ECG OF 21-FEB-2017 17:00, NO SIGNIFICANT CHANGES Confirmed by CHIVO ANDREWS MD ([id number]) on 05/09/2017 1:55:54 AM Referred By: Confirmed By:CHIVO ANDREWS MD
[2017-05-09] MEDS: IBUPROFEN 400 MG TABLET (FP) PO PRN (03:30)
[2017-05-09] MEDS: chlordiazePOXIDE 5 MG CAPSULE PO SCH ×2 (05:36→10:01)
[2017-05-09] MEDS: GABAPENTIN 300 MG CAPSULE (FP) PO SCH ×3 (05:36→22:43)
[2017-05-09] MEDS: PRENATAL VITAMINS W/ FOLIC ACID TABLET (FP) PO SCH (10:01)
[2017-05-09] MEDS: VALSARTAN 80 MG TABLET (UD) PO SCH (10:01)
[2017-05-09] MEDS: NICOTINE 21 MG/24 HOURS TOPICAL PATCH TD SCH (10:02)
[2017-05-09] MEDS ORDERED: chlordiazePOXIDE HCL 10 MG CAPSULE PO SCH (11:00)
--- NOTE | 2017-05-09 11:26 | PN ---
[facility] CIWA - CIWA Score Nausea/Vomitin-No Nausea/No Vomiting Muscle Tremors: 3 Anxiety: 4-Mod. Anxious/Guarded Agitation: 4-Moderately Restless Paroxysmal Sweats: 1-Minimal Palms Moist Orientation: 0-Oriented Tacttile Disturbances: 3-Moderate Itch/Numb/Burn Auditory Disturbances: 0-None Visual Disturbances: 0-None Headache: 0-None Present CIWA-Ar Total Score: 15 BHS Progress Note (SOAP) Subjective: ALERT O X 3. NAD. PT STATES HAS ENDOSCOPY APPOINTMENT TOMORROW. PT APPEARS TO REPORT UNCONFIRMED PROCEDURES TO STAFF NOW WHEREAS HE DID NOT REPORT ANY OF THIS ON ADMISSION. PT HAS BEEN INSTRUCTED TO GIVE ALL INFORMATION/DOCUMENTATION ON MEDS TAKEN HERE TO HIS PROVIDERS FOR THERE AWARENESS RE:ANY PROCEDURE HE MAY HAVE SET UP. EXPLAINED TO PT THE NEED FOR HIS PROVIDERS TO KNOW HIS TREATMENTS PRIOR TO ANY PROCEDURE FOR APPROPRIATE MEDICAL DECISION. PT VERBALIZED UNDERSTANDING OF EXPLANATION. Objective: 05/09/17 11:26 Vital Signs Temperature 96 F L 05/09/17 09:04 Pulse Rate 87 05/09/17 09:04 Respiratory Rate 18 05/09/17 05:57 Blood Pressure 135/91 05/09/17 09:04 O2 Sat by Pulse Oximetry (%) Laboratory Last Values WBC 4.7 K/mm3 (4.0-10.0) D 05/08/17 07:00 RBC 4.36 M/mm3 (4.00-5.60) 05/08/17 07:00 Hgb 13.4 GM/dL (11.7-16.9) D 05/08/17 07:00 Hct 41.0 % (35.4-49) 05/08/17 07:00 MCV 94.0 fl (80-96) 05/08/17 07:00 MCH 30.8 pg (25.7-33.7) 05/08/17 07:00 MCHC 32.7 g/dl (32.0-35.9) 05/08/17 07:00 RDW 14.3 % (11.9-15.9) 05/08/17 07:00 Plt Count 162 K/MM3 (134-434) D 05/08/17 07:00 MPV 9.8 fl (7.5-11.1) 05/08/17 07:00 Sodium 141 mmol/L (136-145) 05/08/17 07:00 Potassium 4.7 mmol/L (3.5-5.1) 05/08/17 07:00 Chloride 108 mmol/L (98-107) H 05/08/17 07:00 Carbon Dioxide 27 mmol/L (21-32) 05/08/17 07:00 Anion Gap 6 (8-16) L 05/08/17 07:00 BUN 20 mg/dL (7-18) H D 05/08/17 07:00 Creatinine 1.4 mg/dL (0.7-1.3) H D 05/08/17 07:00 Creat Clearance w eGFR 53.01 (>60) 05/08/17 07:00 Random Glucose 93 mg/dL (74-106) D 05/08/17 07:00 Calcium 8.8 mg/dL (8.5-10.1) 05/08/17 07:00 Total Bilirubin 0.4 mg/dL (0.2-1.0) D 05/08/17 07:00 AST 27 U/L (15-37) 05/08/17 07:00 ALT 27 U/L (12-78) 05/08/17 07:00 Alkaline Phosphatase 103 U/L (45-117) 05/08/17 07:00 Total Protein 7.5 g/dl (6.4-8.2) 05/08/17 07:00 Albumin 3.5 g/dl (3.4-5.0) 05/08/17 07:00 Urine Color Yellow 05/07/17 13:42 Urine Appearance Clear 05/07/17 13:42 Urine pH 5.0 (5.0-8.0) 05/07/17 13:42 Ur Specific [place] 1.024 (1.001-1.035) 05/07/17 13:42 Urine Protein 1+ (NEGATIVE) H 05/07/17 13:42 Urine Glucose (UA) Negative (NEGATIVE) 05/07/17 13:42 Urine Ketones Negative (NEGATIVE) 05/07/17 13:42 Urine Blood Negative (NEGATIVE) 05/07/17 13:42 Urine Nitrite Negative (NEGATIVE) 05/07/17 13:42 Urine Bilirubin Negative (NEGATIVE) 05/07/17 13:42 Urine Urobilinogen Negative mg/dL (0.2-1.0) 05/07/17 13:42 Ur Leukocyte Esterase Negative (NEGATIVE) 05/07/17 13:42 Urine WBC (Auto) <1 /hpf (3-5) 05/07/17 13:42 Urine RBC (Auto) <1 /hpf (0-3) 05/07/17 13:42 Urine Bacteria Rare /hpf (NONE SEEN) 05/07/17 13:42 Urine Mucus Rare 05/07/17 13:42 RPR Titer Nonreactive (NONREACTIVE) 05/08/17 07:00 Assessment: 05/09/17 11:26 WITHDRAWAL SX Plan: CONTINUE DETOX
[2017-05-09] MEDS ORDERED: chlordiazePOXIDE 5 MG CAPSULE PO SCH (17:00)
[2017-05-09] MEDS: chlordiazePOXIDE HCL 10 MG CAPSULE PO SCH ×2 (17:08→22:43)
[2017-05-09] MEDS: THIAMINE HCL 100 MG TABLET (FP) PO SCH (22:43)
[2017-05-10 05:56] VITALS: BP 135/82; PULSE 88; TEMP 96.4
[2017-05-10] MEDS: GABAPENTIN 300 MG CAPSULE (FP) PO SCH (06:05)
--- NOTE | 2017-05-10 12:01 | DS ---
[facility] Detox Discharge Summary Admission Date: 05/07/17 Discharge Date: 05/10/17 - History Present History: Alcohol Dependence Additional Comments: DETOX COMPLETED. Pertinent Past History: SEE DX SECTION - Physical Exam Results Vital Signs: Vital Signs Temperature 96.4 F L 05/10/17 05:55 Pulse Rate 88 05/10/17 05:55 Respiratory Rate 18 05/10/17 05:55 Blood Pressure 135/82 05/10/17 05:55 O2 Sat by Pulse Oximetry (%) Pertinent Admission Physical Exam Findings: WITHDRAWAL SX Laboratory Last Values WBC 4.7 K/mm3 (4.0-10.0) D 05/08/17 07:00 RBC 4.36 M/mm3 (4.00-5.60) 05/08/17 07:00 Hgb 13.4 GM/dL (11.7-16.9) D 05/08/17 07:00 Hct 41.0 % (35.4-49) 05/08/17 07:00 MCV 94.0 fl (80-96) 05/08/17 07:00 MCH 30.8 pg (25.7-33.7) 05/08/17 07:00 MCHC 32.7 g/dl (32.0-35.9) 05/08/17 07:00 RDW 14.3 % (11.9-15.9) 05/08/17 07:00 Plt Count 162 K/MM3 (134-434) D 05/08/17 07:00 MPV 9.8 fl (7.5-11.1) 05/08/17 07:00 Sodium 141 mmol/L (136-145) 05/08/17 07:00 Potassium 4.7 mmol/L (3.5-5.1) 05/08/17 07:00 Chloride 108 mmol/L (98-107) H 05/08/17 07:00 Carbon Dioxide 27 mmol/L (21-32) 05/08/17 07:00 Anion Gap 6 (8-16) L 05/08/17 07:00 BUN 20 mg/dL (7-18) H D 05/08/17 07:00 Creatinine 1.4 mg/dL (0.7-1.3) H D 05/08/17 07:00 Creat Clearance w eGFR 53.01 (>60) 05/08/17 07:00 Random Glucose 93 mg/dL (74-106) D 05/08/17 07:00 Calcium 8.8 mg/dL (8.5-10.1) 05/08/17 07:00 Total Bilirubin 0.4 mg/dL (0.2-1.0) D 05/08/17 07:00 AST 27 U/L (15-37) 05/08/17 07:00 ALT 27 U/L (12-78) 05/08/17 07:00 Alkaline Phosphatase 103 U/L (45-117) 05/08/17 07:00 Total Protein 7.5 g/dl (6.4-8.2) 05/08/17 07:00 Albumin 3.5 g/dl (3.4-5.0) 05/08/17 07:00 Urine Color Yellow 05/07/17 13:42 Urine Appearance Clear 05/07/17 13:42 Urine pH 5.0 (5.0-8.0) 05/07/17 13:42 Ur Specific [place] 1.024 (1.001-1.035) 05/07/17 13:42 Urine Protein 1+ (NEGATIVE) H 05/07/17 13:42 Urine Glucose (UA) Negative (NEGATIVE) 05/07/17 13:42 Urine Ketones Negative (NEGATIVE) 05/07/17 13:42 Urine Blood Negative (NEGATIVE) 05/07/17 13:42 Urine Nitrite Negative (NEGATIVE) 05/07/17 13:42 Urine Bilirubin Negative (NEGATIVE) 05/07/17 13:42 Urine Urobilinogen Negative mg/dL (0.2-1.0) 05/07/17 13:42 Ur Leukocyte Esterase Negative (NEGATIVE) 05/07/17 13:42 Urine WBC (Auto) <1 /hpf (3-5) 05/07/17 13:42 Urine RBC (Auto) <1 /hpf (0-3) 05/07/17 13:42 Urine Bacteria Rare /hpf (NONE SEEN) 05/07/17 13:42 Urine Mucus Rare 05/07/17 13:42 RPR Titer Nonreactive (NONREACTIVE) 05/08/17 07:00 - Treatment Hospital Course: Detox Protocol Followed, Detoxed Safely, Responded well, Discharged Condition Good - Medication Discharge Medications: Ambulatory Orders Gabapentin [Neurontin -] 300 mg PO Q8H 02/21/17 Ibuprofen 800 mg PO TID 02/21/17 Valsartan [Diovan] 80 mg PO DAILY 02/21/17 Aspirin [ASA -] 325 mg PO DAILY 05/07/17 - Diagnosis (1) Alcohol dependence with uncomplicated withdrawal Status: Acute (2) Nicotine dependence Status: Acute Qualifiers: Nicotine product type: cigarettes Substance use status: in withdrawal Qualified Code(s): F17.213 - Nicotine dependence, cigarettes, with withdrawal (3) History of right hip replacement Status: Chronic (4) Arthritis of right hip Status: Chronic (5) HTN (hypertension) Status: Chronic Qualifiers: Hypertension type: essential hypertension Qualified Code(s): I10 - Essential (primary) hypertension (6) Walker as ambulation aid Status: Chronic (7) Cocaine dependence Status: Acute Qualifiers: Substance use status: uncomplicated Qualified Code(s): F14.20 - Cocaine dependence, uncomplicated - AMA Did Patient Leave Against Medical Advice: No
[2017-05-10] MEDS ORDERED: chlordiazePOXIDE HCL 10 MG CAPSULE PO SCH (17:00)
== END 2017-05-10 06:35 | disposition home or self-care (01) | DRG 774 ==
LOC: YASAS 08:40 → Y3N 12:16
PROVIDERS: ADMIT Internal Medicine; ATTEND Internal Medicine
PROC: HZ2ZZZZ Detoxification Services for Substance Abuse Treatment (ICD-10-PCS; principal; 2017-05-07)
DX: F10.230 Alcohol dependence with withdrawal, uncomplicated (principal); F14.20 Cocaine dependence, uncomplicated; F17.210 Nicotine dependence, cigarettes, uncomplicated; F19.24 Other psychoactive substance dependence with psychoactive substance-induced mood disorder; F32.9 Major depressive disorder, single episode, unspecified; I10 Essential (primary) hypertension; G47.00 Insomnia, unspecified; R26.2 Difficulty in walking, not elsewhere classified; Z99.89 Dependence on other enabling machines and devices; Z63.4 Disappearance and death of family member; M13.851 Other specified arthritis, right hip; Z96.641 Presence of right artificial hip joint; E66.9 Obesity, unspecified; Z68.42 Body mass index [BMI] 45.0-49.9, adult
CPT/HCPCS: 36415; 80053; 81003; 81015; 85027; 86593; 93005; 93010

== ENCOUNTER 2017-09-30 08:19 | Inpatient (IN) | payer OTHER ==
[2017-09-30 09:07] VITALS: BMI 45.2
--- NOTE | 2017-09-30 09:44 | HP ---
COWS - Scale Resting Pulse: 1= [place] 81-100 Sweatin= No chills or Flushing Restless Observation: 0= Sits Still Pupil Size: 0= Normal to Room Light Bone or Joint Aches: 1= Mild Discomfort Runny Nose/ Eye Tearin= Nasal Congestion GI Upset > 30mins: 2= Nausea/Diarrhea Tremor Observation: 2= Slight Tremor Visible Yawning Observation: 1= 1-2x During Session Anxiety or Irritability: 1=Feels Anxious/Irritable Goose Flesh Skin: 0=Smooth Skin COWS Score: 9 CIWA Score - CIWA Score Nausea/Vomitin-Mild Nausea/No Vomiting Muscle Tremors: 4-Moderate,w/Arms Extend Anxiety: 4-Mod. Anxious/Guarded Agitation: 1-Slight > Activity Paroxysmal Sweats: No Perspiration Orientation: 0-Oriented Tacttile Disturbances: 1-Very Mild Itch/Numbness Auditory Disturbances: 1-Very Mild Visual Disturbances: 1-Very Mild Sensitivity Headache: 1-Very Mild CIWA-Ar Total Score: 14 Admission ROS S - HPI Chief Complaint: I want to be clean of all the drugs - I have bad cancer, I get too shaky and I can't do it on my own Allergies/Adverse Reactions: Allergies Allergy/AdvReac Type Severity Reaction Status Date / Time No Known Allergies Allergy Verified 09/30/17 09:03 History of Present Illness: 52 yo gentleman here for detox from alcohol and opiates, also using cocaine. Patient previously here April 2017 for detox. Patient reports history of being on methadone program [id number] (90mg), then had a fall and broke femur and it became too difficult to get to the program and he relapsed with heroin. He was given suboxone in May 2017 but didn't like how it made him feel. Patient diagnosed with lung cancer in May 2017 and he states it is stage IV with mets to liver and and bone - he is getting chemo. He states he was prescribed oxycodone and morphine for his pain - he admits he only takes a few of the pills then 'liquidates' them go get heroin. He would like to go back on the methadone program but is concerned about getting there. He has an appointment for pain management on 10/04 at [facility] and to get chemo on 10/06. Patient states 'I want to clean, I want to get the heroin out of my system '. Patient brought in paperwork showing he is neutropenic and was treated at [facility] 09/22-09/26/17 for neutropenic pneumonia. During his hospitalization he was given oxycodone and ms worley, he states his [employer]ER brought him beer in the hospital and he continued to drink. He states he did not tell the doctors in the hospital what he was doing, and that he gets very shaky if he doesn't drink. Exam Limitations: Clinical Condition - Ebola screening Have you traveled outside of the country in the last 21 days: No (N) Have you had contact with anyone from an Ebola affected area: No Have you been sick,other than usual withdrawal symptoms: No Do you have a fever: No - Review of Systems Constitutional: Loss of Appetite, Malaise, Night Sweats, Weakness EENT: reports: Nose Congestion Respiratory: reports: SOB with Exertion Cardiac: reports: No Symptoms Reported GI: reports: Poor Appetite, Poor Fluid Intake, Abdominal cramping : reports: No Symptoms Reported Musculoskeletal: reports: Back Pain, Muscle Pain Integumentary: reports: Dryness Neuro: reports: Headache, Tremors Endocrine: reports: No Symptoms Reported Hematology: reports: No Symptoms Reported Psychiatric: reports: Judgement Intact, Mood/Affect Appropiate, Orientated x3, Anxious Other Systems: Reviewed and Negative Patient History - Patient Medical History Hx Anemia: No Hx Asthma: No Hx Chronic Obstructive Pulmonary Disease (COPD): No Hx Cancer: Yes (metastatic adenocarcinoma lung - mets liver and bone) Hx Cardiac Disorders: No Hx Congestive Heart Failure: No Hx Hypertension: Yes (on meds.) Hx Hypercholesterolemia: No Hx Pacemaker: No HX Cerebrovascular Accident: No Hx Seizures: No Hx Diabetes: No Hx Gastrointestinal Disorders: No Hx Liver Disease: No Hx Genitourinary Disorders: No Hx Sexually Transmitted Disorders: No Hx Renal Disease (ESRD): Yes (mild renal insufficiency) Hx Thyroid Disease: No Hx Human Immunodeficiency Virus (HIV): No (negative LAST 09/05) Hx Hepatitis C: No (negative) Hx Depression: Yes (NO MED) Hx Suicide Attempt: No Hx Bipolar Disorder: No Hx Schizophrenia: No - Patient Surgical History Past Surgical History: Yes Hx Neurologic Surgery: No Hx Cataract Extraction: No Hx Cardiac Surgery: No Hx Lung Surgery: Yes (chest tube jun 2017) Hx Breast Surgery: No Hx Breast Biopsy: No Hx Abdominal Surgery: No Hx Appendectomy: No Hx Cholecystectomy: No Hx Genitourinary Surgery: No Hx Section: No Hx Orthopedic Surgery: Yes (left femur x3 (fall) in 2014) Other Surgical History: Total R hip replacement 04/25/[address] [facility] Anesthesia Reaction: No - PPD History Previous Implant?: Yes Documented Results: Negative w/proof Implanted On Prior [facility] Admission?: Yes Date: 02/23/17 Results: NEGATIVE PPD to be Administered?: No - Reproductive History Patient is a Female of Child Bearing Age (11 -55 yrs old): No (male) - Smoking Cessation Smoking history: Current every day smoker Have you smoked in the past 12 months: Yes Aproximately how many cigarettes per day: 3 Hx Chewing Tobacco Use: No Initiated information on smoking cessation: Yes 'Breaking Loose' booklet given: 09/30/17 (give on floor) - Substance & Tx. History Hx Alcohol Use: Yes Hx Substance Use: Yes Substance Use Type: Alcohol, Cocaine, Heroin, Opiates Hx Substance Use Treatment: Yes - Substances Abused Heroin Route: Inhalation Frequency: Daily Amount used: 4-6 BAGS DAILY Age of first use: 39 Date of Last Use: 09/29/17 Cocaine Route: Inhalation Frequency: Daily Amount used: 2 BAGS DAILY Age of first use: 21 Date of Last Use: 09/29/17 Alcohol Route: Oral Frequency: Daily Amount used: 4-10 BOTTLES OF 16 [employer] Age of first use: 13 Date of Last Use: 09/30/17 oxycodone Route: Oral Frequency: 1-2 times per week Amount used: 30mg Age of first use: 52 Date of Last Use: 09/29/17 Family Disease History - Family Disease History Family Disease History: Heart Disease: Father (, ), Other: Father, Mother (, 'old age'), Brother (one - living - healthy), Sister (three - living -healthy) Admission Physical Exam S - Vital Signs Vital Signs: Vital Signs - 24 hr 09/30/17 09:05 Temperature 97.3 F L Pulse Rate 94 H Respiratory 16 Rate Blood Pressure 106/58 - Physical General Appearance: Yes: Nourished, Appropriately Dressed, Moderate Distress, Obese, Anxious HEENTM: Yes: EOMI, Hearing grossly Normal, Normocephalic, Normal Voice, Pharynx Normal Respiratory: Yes: No Respiratory Distress, Surgical Scar Neck: Yes: No masses,lesions,Nodules, Supple Breast: Yes: Breast Exam Deferred Cardiology: Yes: Regular Rhythm, Regular Rate, Edema (bilateral 1+ lower extremity) Abdominal: Yes: Non Tender, Soft, Protuberent, Other (thickened area at right lower quadrant due to lovenox injections) Genitourinary: Yes: Frequency Back: Yes: Decreased Range of Motion Musculoskeletal: Yes: Gait Steady, Joint Stiffness, Muscle Pain, Other (uses walker to ambulate) Extremities: Yes: Swelling Neurological: Yes: Fully Oriented, Alert, Normal Mood/Affect, Normal Response Integumentary: Yes: Normal Color, Dry, Warm - Diagnostic (1) Alcohol dependence with uncomplicated withdrawal Current Visit: Yes Status: Chronic (2) Opioid dependence with withdrawal Current Visit: Yes Status: Chronic (3) Cocaine dependence Current Visit: Yes Status: Chronic Qualifiers: Substance use status: uncomplicated Qualified Code(s): F14.20 - Cocaine dependence, uncomplicated (4) Adenocarcinoma of lung metastatic to liver Current Visit: Yes Status: Acute Qualifiers: Laterality: unspecified laterality Qualified Code(s): C34.90 - Malignant neoplasm of unspecified part of unspecified bronchus or lung; C78.7 - Secondary malignant neoplasm of liver and intrahepatic bile duct; C78.7 - Secondary malignant neoplasm of liver and intrahepatic bile duct; C78.7 - Secondary malignant neoplasm of liver and intrahepatic bile duct; C78.7 - Secondary malignant neoplasm of liver and intrahepatic bile duct (5) Neutropenia Current Visit: Yes Status: Acute Qualifiers: Neutropenia type: secondary to cancer chemotherapy Qualified Code(s): D70.1 - Agranulocytosis secondary to cancer chemotherapy; T45.1X5A - Adverse effect of antineoplastic and immunosuppressive drugs, initial encounter; T45.1X5A - Adverse effect of antineoplastic and immunosuppressive drugs, initial encounter (6) Nicotine dependence Current Visit: Yes Status: Acute Qualifiers: Nicotine product type: cigarettes Substance use status: in withdrawal Qualified Code(s): F17.213 - Nicotine dependence, cigarettes, with withdrawal (7) Arthritis of right hip Current Visit: Yes Status: Chronic (8) HTN (hypertension) Current Visit: Yes Status: Chronic Qualifiers: Hypertension type: essential hypertension Qualified Code(s): I10 - Essential (primary) hypertension (9) History of right hip replacement Current Visit: Yes Status: Chronic (10) Walker as ambulation aid Current Visit: Yes Status: Chronic (11) Renal insufficiency, mild Current Visit: Yes Status: Chronic (12) Edema of both feet Current Visit: Yes Status: Chronic Cleared for Admission [facility] - Detox or Rehab [facility] Level of Care: Medically Managed Detox Regimen/Protocol: Methadone/Librium [facility] Breath Alcohol Content Breath Alcohol Content: 0 Urine Drug Screen - Results Drug Screen Negative: No Urine Drug Screen Results: LOUIS-Cocaine, OPI-Opiates, OXY-Oxycodone
[2017-09-30] MEDS ORDERED: P-EPHED 60MG/TRIPROLIDI 2.5MG TABLET PO PRN (10:31)
[2017-09-30] MEDS ORDERED: MAGNESIUM CITRATE 300 ML BOTTLE PO PRN (10:31)
[2017-09-30] MEDS ORDERED: MENTHOL/PHENOL 1 EACH UD MM PRN (10:31)
[2017-09-30] MEDS ORDERED: guaiFENesin/D-METHORPHAN HB 10 ML UNIT-DOSE CUPS PO PRN (10:31)
[2017-09-30] MEDS ORDERED: LOPERAMIDE HCL 2 MG CAPSULE PO PRN (10:31)
[2017-09-30] MEDS ORDERED: MAG HYDROX/AL HYDROX/SIMETH 30 ML UNIT-DOSE CUP PO PRN (10:31)
[2017-09-30] MEDS ORDERED: hydrOXYzine PAMOATE 25 MG CAPSULE (FP) PO PRN (10:31)
[2017-09-30] MEDS ORDERED: MAGNESIUM HYDROX 2400MG/30ML ORAL SUSPENSION 30 ML CUP PO PRN (10:31)
[2017-09-30] MEDS ORDERED: ENOXAPARIN NA (PORCINE) 100 MG/1 ML DISP.SYRIN SQ SCH (10:45)
[2017-09-30] MEDS ORDERED: METHADONE HCL 10 MG TABLET (FOR DETOX USE ONLY) PO ONE ×2 (11:00→23:00)
[2017-09-30] MEDS ORDERED: chlordiazePOXIDE HCL 25 MG CAPSULE PO ONE (11:00)
[2017-09-30] MEDS: GABAPENTIN 300 MG CAPSULE (FP) PO SCH ×2 (11:47→18:51)
[2017-09-30] MEDS: NICOTINE 14 MG/24 HOURS TOPICAL PATCH TD SCH (11:51)
[2017-09-30] MEDS: ENOXAPARIN SQ SCH ×2 (15:14→22:34)
--- NOTE | 2017-09-30 15:38 | EKG ---
Test Reason : Blood Pressure : / mmHG Vent. Rate : 099 BPM Atrial Rate : 099 BPM P-R Int : 156 ms QRS Dur : 098 ms QT Int : 360 ms P-R-T Axes : 058 036 015 degrees QTc Int : 462 ms NORMAL SINUS RHYTHM NORMAL ECG WHEN COMPARED WITH ECG OF 07-MAY-2017 14:10, NO SIGNIFICANT CHANGE WAS FOUND Confirmed by SRAVANI HI MD ([id number]) on 09/30/2017 3:37:54 PM Referred By: Confirmed By:SRAVANI HI MD
[2017-09-30] MEDS: CEFPODOXIME PROXETIL 200 MG TABLET [NF] PO SCH ×2 (16:14→22:36)
[2017-09-30 16:55] LABS: URINE APPEARANCE CLEAR; URINE BILIRUBIN NEGATIVE (<2.0 mg/dL); URINE COLOR LTYELLOW; URINE GLUCOSE (UA) NEGATIVE (NEGATIVE); URINE KETONE NEGATIVE (NEGATIVE); URINE LEUK ESTERASE NEGATIVE (NEGATIVE); URINE NITRITE NEGATIVE (NEGATIVE); URINE PROTEIN NEGATIVE (NEGATIVE); URINE UROBILINOGEN NEGATIVE mg/dL (0.2-1.0)
[2017-09-30 17:02] LABS: EPI CELLS RARE /HPF (FEW); URINE BACTERIA RARE /hpf (NONE SEEN)
[2017-09-30] MEDS: chlordiazePOXIDE HCL 25 MG CAPSULE PO SCH ×2 (17:39→22:35)
[2017-09-30] MEDS ORDERED: THIAMINE HCL 100 MG TABLET (FP) PO SCH (22:00)
[2017-09-30] MEDS ORDERED: MELATONIN 5 MG TABLETS PO PRN (22:00)
[2017-10-01] MEDS: chlordiazePOXIDE HCL 25 MG CAPSULE PO PRN ×2 (03:16→15:36)
[2017-10-01] MEDS: ACETAMINOPHEN 325 MG TABLET (FP) PO PRN ×3 (03:17→18:51)
[2017-10-01] MEDS: GABAPENTIN 300 MG CAPSULE (FP) PO SCH ×3 (06:11→18:05)
[2017-10-01] MEDS: chlordiazePOXIDE HCL 25 MG CAPSULE PO SCH ×2 (06:11→10:51)
[2017-10-01] MEDS ORDERED: METHADONE HCL 10 MG TABLET (FOR DETOX USE ONLY) PO SCH (10:00)
[2017-10-01] MEDS ORDERED: VALSARTAN 80 MG TABLET (UD) PO SCH (10:00)
[2017-10-01] MEDS ORDERED: PRENATAL VITAMINS W/ FOLIC ACID TABLET (FP) PO SCH (10:00)
[2017-10-01 10:14] LABS: HEMATOCRIT 20.5 % (35.4-49); HEMOGLOBIN 7.3 GM/dL (11.7-16.9); MCHC 35.3 g/dl (32.0-35.9); MEAN CELL VOLUME 90.6 fl (80-96); MEAN PLT VOLUME 9.3 fl (7.5-11.1); PLATELET COUNT 100 K/MM3 (134-434); RBC 2.27 M/mm3 (4.00-5.60); RDW 21.1 % (11.9-15.9); WHITE BLOOD COUNT 3.3 K/mm3 (4.0-10.0)
[2017-10-01 10:25] LABS: CHLORIDE 105 mmol/L (98-107); POTASSIUM 4.5 mmol/L (3.5-5.1); SODIUM 136 mmol/L (136-145)
[2017-10-01 10:40] LABS: ALBUMIN 2.6 g/dl (3.4-5.0); ANION GAP 9 (8-16); BILIRUBIN,TOTAL 0.3 mg/dL (0.2-1.0); BLOOD UREA NITROGEN 15 mg/dL (7-18); CALCIUM 7.4 mg/dL (8.5-10.1); CO2 22 mmol/L (21-32); GLUCOSE,RANDOM 105 mg/dL (74-106); SGOT/AST 107 U/L (15-37); SGPT/ALT 35 U/L (12-78)
[2017-10-01 10:41] LABS: ALK PHOS 97 U/L (45-117); TOT PROT 6.7 g/dl (6.4-8.2)
[2017-10-01] MEDS: CEFPODOXIME PROXETIL 200 MG TABLET [NF] PO SCH (10:52)
[2017-10-01] MEDS: ENOXAPARIN SQ SCH (11:14)
[2017-10-01] MEDS: NICOTINE 14 MG/24 HOURS TOPICAL PATCH TD SCH (11:14)
--- NOTE | 2017-10-01 16:08 | CONSULT ---
[facility] Psychiatric Consult - Data Date of interview: 10/01/17 Admission source: Self-referred Identifying data: Patient is a 52 y/o male single, unemployed domiciled, SSI recipient Substance Abuse History: He has been using on and off drugs over the past 20 years. He uses ETOH Opiates, Cocaine, Heroin. His most recent relapse is econdary to his diagnosis of cancer. Refer to Detox counselor note for more detailed history Medical History: Diagnosed with lung cancer which is spreading to his liver and also has ESRD. Patient reported a history of fall 2015 as as consequence broke his left femur, He had right hip replacement in 2017 @ [facility] Psychiatric History: Patient has no prior psychiatric history, he reports feeling sad, depressed anxious , with insomnia, maintains his appetite. He denies suicidal ideation Physical/Sexual Abuse/Trauma History: Denies history of abuse or trauma Mental Status Exam - Mental Status Exam Alert and Oriented to: Time, Place, Person Cognitive Function: Grossly Intact Patient Appearance: Well Groomed Mood: Depressed, Nervous Affect: Appropriate Patient Behavior: Appropriate, Cooperative Speech Pattern: Clear Voice Loudness: Normal Thought Process: Intact Thought Disorder: Not Present Hallucinations: None Suicidal Ideation: None Homicidal Ideation: None Insight/Judgement: Poor Sleep: Poorly Appetite: Good Muscle strength/Tone: Normal Gait/Station: Normal Psychiatric Findings - Problem List ([place] 1, 2,3) (1) Adjustment reaction with prolonged depressive reaction Current Visit: Yes Status: Acute (2) Nicotine dependence Current Visit: Yes Status: Acute Qualifiers: Nicotine product type: cigarettes Substance use status: in withdrawal Qualified Code(s): F17.213 - Nicotine dependence, cigarettes, with withdrawal (3) Alcohol dependence with uncomplicated withdrawal Current Visit: Yes Status: Acute (4) Cocaine dependence Current Visit: Yes Status: Acute Qualifiers: Substance use status: uncomplicated Qualified Code(s): F14.20 - Cocaine dependence, uncomplicated - Initial Treatment Plan Initial Treatment Plan: Continue in patient Detox treatment. Start on Melatonin prn
--- NOTE | 2017-10-01 16:19 | PN ---
S CIWA - CIWA Score Nausea/Vomitin Muscle Tremors: 4-Moderate,w/Arms Extend Anxiety: 4-Mod. Anxious/Guarded Agitation: 3 Paroxysmal Sweats: 3 Orientation: 0-Oriented Tacttile Disturbances: 1-Very Mild Itch/Numbness Auditory Disturbances: 0-None Visual Disturbances: 0-None Headache: 1-Very Mild CIWA-Ar Total Score: 19 S COWS - Scale Resting Pulse: 2= NV 101-120 Sweatin= Chills/Flushing Restless Observation: 3= Extraneous Movement Pupil Size: 0= Normal to Room Light Bone or Joint Aches: 2= Severe Diffuse Aches Runny Nose/ Eye Tearin= Runny Nose/Eyes GI Upset > 30mins: 2= Nausea/Diarrhea Tremor Observation of Outstretched Hands: 2= Slight Tremor Visible Yawning Observation: 1= 1-2x During Session Anxiety or Irritability: 2=Irritable/Anxious Goose Flesh Skin: 0=Smooth Skin COWS Score: 17 [facility] Progress Note (SOAP) Subjective: Chills, back pain, interrupted sleep, sweating Objective: 10/01/17 16:15 Last Vital Signs Temp Pulse Resp BP Pulse Ox 96.4 F L 102 H 16 129/67 10/01/17 14:00 10/01/17 14:00 10/01/17 14:00 10/01/17 14:00 Laboratory Tests 09/30/17 10/01/17 10/01/17 09:15 08:00 08:00 WBC 3.3 L RBC 2.27 L D Hgb 7.3 L D Hct 20.5 L D MCV 90.6 MCH 32.0 MCHC 35.3 RDW 21.1 H D Plt Count 100 L D MPV 9.3 Sodium 136 Potassium 4.5 Chloride 105 Carbon Dioxide 22 Anion Gap 9 BUN 15 D Creatinine 1.0 D Creat Clearance w eGFR > 60 Random Glucose 105 Calcium 7.4 L Total Bilirubin 0.3 D AST 107 H D ALT 35 D Alkaline Phosphatase 97 Total Protein 6.7 Albumin 2.6 L D Urine Color Ltyellow Urine Appearance Clear Urine pH 5.0 Ur Specific [place] 1.005 Urine Protein Negative Urine Glucose (UA) Negative Urine Ketones Negative Urine Blood 1+ H Urine Nitrite Negative Urine Bilirubin Negative Urine Urobilinogen Negative Ur Leukocyte Esterase Negative Urine WBC (Auto) 1 Urine RBC (Auto) None Ur Epithelial Cells Rare Urine Bacteria Rare RPR Titer 10/01/17 08:00 WBC RBC Hgb Hct MCV MCH MCHC RDW Plt Count MPV Sodium Potassium Chloride Carbon Dioxide Anion Gap BUN Creatinine Creat Clearance w eGFR Random Glucose Calcium Total Bilirubin AST ALT Alkaline Phosphatase Total Protein Albumin Urine Color Urine Appearance Urine pH Ur Specific [place] Urine Protein Urine Glucose (UA) Urine Ketones Urine Blood Urine Nitrite Urine Bilirubin Urine Urobilinogen Ur Leukocyte Esterase Urine WBC (Auto) Urine RBC (Auto) Ur Epithelial Cells Urine Bacteria RPR Titer Nonreactive Labs noted: noted with pancytopenia and microscopic hematuria Assessment: 10/01/17 16:17 Withdrawal symptoms Noted with pancytopenia and microscopic hematuria Plan: Continue detox Pancytopenia: stable, follow up with PCP for monitoring Microscopic hematuria: encourage PO hydration (water), repeat UA
[2017-10-01] MEDS ORDERED: chlordiazePOXIDE HCL 25 MG CAPSULE PO SCH (17:00)
[2017-10-01 18:25] VITALS: BP 115/65; PULSE 99; TEMP 98.1
--- NOTE | 2017-10-01 19:40 | PN ---
[facility] Progress Note Note: called by nurse ,patient did not want to complete treatment concerning about security of his house,seen by counselor,signed release ama, did not want to wait
--- NOTE | 2017-10-01 19:57 | DS ---
[facility] Detox Discharge Summary Admission Date: 09/30/17 Discharge Date: 10/01/17 - History Present History: Alcohol Dependence, Cocaine Dependence, Opioid Dependence Additional Comments: patient did not want to complete treatment,concerning security of his house, signed release ama,did not want to wait Pertinent Past History: adenocarcinoma of lung with liver matastasis neutropenia arthritis s/p right hip replacement hypertension ambulation with walker renal insufficiency - Physical Exam Results Vital Signs: Vital Signs Temperature 98.1 F 10/01/17 18:24 Pulse Rate 99 H 10/01/17 18:24 Respiratory Rate 18 10/01/17 18:24 Blood Pressure 115/65 10/01/17 18:24 O2 Sat by Pulse Oximetry (%) Pertinent Admission Physical Exam Findings: withdrawal signs and symptom Vital Signs Temperature 98.1 F 10/01/17 18:24 Pulse Rate 99 H 10/01/17 18:24 Respiratory Rate 18 10/01/17 18:24 Blood Pressure 115/65 10/01/17 18:24 O2 Sat by Pulse Oximetry (%) Laboratory Last Values WBC 3.3 K/mm3 (4.0-10.0) L 10/01/17 08:00 RBC 2.27 M/mm3 (4.00-5.60) L D 10/01/17 08:00 Hgb 7.3 GM/dL (11.7-16.9) L D 10/01/17 08:00 Hct 20.5 % (35.4-49) L D 10/01/17 08:00 MCV 90.6 fl (80-96) 10/01/17 08:00 MCH 32.0 pg (25.7-33.7) 10/01/17 08:00 MCHC 35.3 g/dl (32.0-35.9) 10/01/17 08:00 RDW 21.1 % (11.9-15.9) H D 10/01/17 08:00 Plt Count 100 K/MM3 (134-434) L D 10/01/17 08:00 MPV 9.3 fl (7.5-11.1) 10/01/17 08:00 Sodium 136 mmol/L (136-145) 10/01/17 08:00 Potassium 4.5 mmol/L (3.5-5.1) 10/01/17 08:00 Chloride 105 mmol/L (98-107) 10/01/17 08:00 Carbon Dioxide 22 mmol/L (21-32) 10/01/17 08:00 Anion Gap 9 (8-16) 10/01/17 08:00 BUN 15 mg/dL (7-18) D 10/01/17 08:00 Creatinine 1.0 mg/dL (0.7-1.3) D 10/01/17 08:00 Creat Clearance w eGFR > 60 (>60) 10/01/17 08:00 Random Glucose 105 mg/dL (74-106) 10/01/17 08:00 Calcium 7.4 mg/dL (8.5-10.1) L 10/01/17 08:00 Total Bilirubin 0.3 mg/dL (0.2-1.0) D 10/01/17 08:00 AST 107 U/L (15-37) H D 10/01/17 08:00 ALT 35 U/L (12-78) D 10/01/17 08:00 Alkaline Phosphatase 97 U/L (45-117) 10/01/17 08:00 Total Protein 6.7 g/dl (6.4-8.2) 10/01/17 08:00 Albumin 2.6 g/dl (3.4-5.0) L D 10/01/17 08:00 Urine Color Ltyellow 09/30/17 09:15 Urine Appearance Clear 09/30/17 09:15 Urine pH 5.0 (5.0-8.0) 09/30/17 09:15 Ur Specific [place] 1.005 (1.001-1.035) 09/30/17 09:15 Urine Protein Negative (NEGATIVE) 09/30/17 09:15 Urine Glucose (UA) Negative (NEGATIVE) 09/30/17 09:15 Urine Ketones Negative (NEGATIVE) 09/30/17 09:15 Urine Blood 1+ (NEGATIVE) H 09/30/17 09:15 Urine Nitrite Negative (NEGATIVE) 09/30/17 09:15 Urine Bilirubin Negative (<2.0 mg/dL) 09/30/17 09:15 Urine Urobilinogen Negative mg/dL (0.2-1.0) 09/30/17 09:15 Ur Leukocyte Esterase Negative (NEGATIVE) 09/30/17 09:15 Urine WBC (Auto) 1 /hpf (3-5) 09/30/17 09:15 Urine RBC (Auto) None /hpf (0-3) 09/30/17 09:15 Ur Epithelial Cells Rare /HPF (FEW) 09/30/17 09:15 Urine Bacteria Rare /hpf (NONE SEEN) 09/30/17 09:15 RPR Titer Nonreactive (NONREACTIVE) 10/01/17 08:00 - Medication Discharge Medications: Ambulatory Orders Gabapentin [Neurontin -] 300 mg PO Q8H 02/21/17 Valsartan [Diovan] 80 mg PO DAILY 02/21/17 Cefpodoxime Proxetil [Vantin -] 200 mg PO Q12H 09/30/17 Docusate Sodium [Colace -] 100 mg PO TID 09/30/17 Enoxaparin Sodium [Lovenox] 150 mg SQ BID 09/30/17 Morphine Sulfate 30 mg PO BID 09/30/17 Oxycodone HCl 30 mg PO Q3H 09/30/17 Sennosides [Senna] 2 tab PO DAILY 09/30/17 - Diagnosis (1) Opioid dependence with withdrawal Current Visit: Yes Status: Acute (2) Alcohol dependence with uncomplicated withdrawal Current Visit: Yes Status: Acute (3) Neutropenia Current Visit: Yes Status: Acute Qualifiers: Neutropenia type: secondary to cancer chemotherapy Qualified Code(s): D70.1 - Agranulocytosis secondary to cancer chemotherapy; T45.1X5A - Adverse effect of antineoplastic and immunosuppressive drugs, initial encounter; T45.1X5A - Adverse effect of antineoplastic and immunosuppressive drugs, initial encounter (4) Adenocarcinoma of lung metastatic to liver Current Visit: Yes Status: Chronic Qualifiers: Laterality: unspecified laterality Qualified Code(s): C34.90 - Malignant neoplasm of unspecified part of unspecified bronchus or lung; C78.7 - Secondary malignant neoplasm of liver and intrahepatic bile duct; C78.7 - Secondary malignant neoplasm of liver and intrahepatic bile duct; C78.7 - Secondary malignant neoplasm of liver and intrahepatic bile duct; C78.7 - Secondary malignant neoplasm of liver and intrahepatic bile duct (5) Arthritis of right hip Current Visit: Yes Status: Chronic (6) Cocaine dependence Current Visit: Yes Status: Chronic Qualifiers: Substance use status: uncomplicated Qualified Code(s): F14.20 - Cocaine dependence, uncomplicated (7) Edema of both feet Current Visit: Yes Status: Chronic (8) HTN (hypertension) Current Visit: Yes Status: Chronic Qualifiers: Hypertension type: essential hypertension Qualified Code(s): I10 - Essential (primary) hypertension (9) History of right hip replacement Current Visit: Yes Status: Chronic (10) Nicotine dependence Current Visit: Yes Status: Chronic Qualifiers: Nicotine product type: cigarettes Substance use status: in withdrawal Qualified Code(s): F17.213 - Nicotine dependence, cigarettes, with withdrawal (11) Renal insufficiency, mild Current Visit: Yes Status: Chronic (12) Walker as ambulation aid Current Visit: Yes Status: Chronic (13) Substance-induced sleep disorder Current Visit: No Status: Acute (14) Substance induced mood disorder Current Visit: No Status: Chronic - AMA Did Patient Leave Against Medical Advice: Yes
[2017-10-02] MEDS ORDERED: METHADONE HCL 5 MG TABLET (FOR DETOX USE ONLY) PO SCH (10:00)
[2017-10-02] MEDS ORDERED: chlordiazePOXIDE 5 MG CAPSULE PO SCH (17:00)
[2017-10-03] MEDS ORDERED: chlordiazePOXIDE HCL 10 MG CAPSULE PO SCH (17:00)
[2017-10-04] MEDS ORDERED: METHADONE HCL 10 MG TABLET (FOR DETOX USE ONLY) PO SCH (10:00)
[2017-10-05] MEDS ORDERED: METHADONE HCL 5 MG TABLET (FOR DETOX USE ONLY) PO SCH (06:00)
== END 2017-10-01 20:00 | disposition left against medical advice (07) | DRG 770 ==
LOC: YASAS 08:19 → Y6N 10:18
PROVIDERS: ADMIT Surgery; ATTEND Surgery
PROC: HZ2ZZZZ Detoxification Services for Substance Abuse Treatment (ICD-10-PCS; principal; 2017-09-30)
DX: F11.23 Opioid dependence with withdrawal (principal); F10.230 Alcohol dependence with withdrawal, uncomplicated; F14.20 Cocaine dependence, uncomplicated; F17.210 Nicotine dependence, cigarettes, uncomplicated; F19.24 Other psychoactive substance dependence with psychoactive substance-induced mood disorder; F19.282 Other psychoactive substance dependence with psychoactive substance-induced sleep disorder; I10 Essential (primary) hypertension; R60.0 Localized edema; C34.90 Malignant neoplasm of unspecified part of unspecified bronchus or lung; C78.7 Secondary malignant neoplasm of liver and intrahepatic bile duct; M16.11 Unilateral primary osteoarthritis, right hip; D61.818 Other pancytopenia; R31.29 Other microscopic hematuria; F43.21 Adjustment disorder with depressed mood; N28.9 Disorder of kidney and ureter, unspecified; R26.89 Other abnormalities of gait and mobility; Z99.89 Dependence on other enabling machines and devices; T45.1X5A Adverse effect of antineoplastic and immunosuppressive drugs, initial encounter; D70.1 Agranulocytosis secondary to cancer chemotherapy
CPT/HCPCS: 36415; 80053; 81003; 81015; 85027; 86593; 93005; 93010